=== PATIENT | male | born 1985 | race African-American/Black ===

== ENCOUNTER 2017-12-27 13:49 | Observation (INO) | payer OTHER ==
[~2017-12-27] VITALS: Ht 167.6 cm; Wt 75.3 kg
[~2017-12-27 13:49] MED LIST: CARAFATE 11 GM/10 M1 PO; OMEPRAZOLE40 MG PO; PERCOCET 5-3251 EACH PO; REGLAN 5 MG TAB5 M1 PO; ZOFRAN ODT4 MG PO
[2017-12-27 13:50] VITALS: BP 149/86
[2017-12-27 14:14] LABS: ABSOLUTE NEUTROPHILS 11.8 thou/uL (1.4-8.2); BASOPHILS 0.7 % (0.0-2.0); EOSINOPHILS 0.6 % (0.0-3.0); HEMATOCRIT 43.3 % (42.0-52.0); HEMOGLOBIN 14.8 gm/dL (14.0-18.0); LYMPHOCYTES 16.1 % (24.0-44.0); MCH 30.4 pg (26.0-34.0); MCHC 34.1 g/dL (28.0-37.0); MCV 89.1 fL (80.0-100.0); MONOCYTES 3.7 % (1.0-8.0); PLATELET COUNT 245 thou/uL (150-400); POLYS 78.9 % (36.0-66.0); RBC 4.86 mil/uL (4.50-6.00); RDW 14.7 % (10.5-14.5); WBC 14.9 thou/uL (4.0-11.0)
[2017-12-27 14:21] LABS: ANION GAP 10 mmol/L (7-16); BUN 12 mg/dL (7-18); CALCIUM 10.2 mg/dL (8.5-10.1); CHLORIDE 105 mmol/L (98-107); CO2 28 mmol/L (21-32); CREATININE 1.1 mg/dL (0.7-1.3); GLUCOSE 115 mg/dL (74-106); POTASSIUM 3.8 mmol/L (3.5-5.1); SODIUM 143 mmol/L (136-145)
[2017-12-27 14:26] LABS: ALBUMIN 4.7 g/dL (3.4-5.0); DIRECT BILIRUBIN < 0.1 mg/dL (<0.1-0.3); LIPASE 181 U/L (73-393); SGOT 27 U/L (15-37); SGPT 31 U/L (30-65); TOTAL BILIRUBIN 0.4 mg/dL (<0.1-1.0); TOTAL PROTEIN 8.4 g/dL (6.4-8.2)
[2017-12-27 16:25] LABS: URINE BILIRUBIN NEGATIVE (Negative); URINE BLOOD NEGATIVE (Negative); URINE CLARITY CLEAR; URINE COLOR YELLOW; URINE GLUCOSE-RANDOM* NEGATIVE (Negative); URINE KETONES 2+ (Negative); URINE LEUKOCYTES NEGATIVE (Negative); URINE NITRITE NEGATIVE (Negative); URINE PROTEIN (DIPSTICK) 1+ (Negative)
[2017-12-27 16:30] LABS: BACTERIA None Seen /HPF (None Seen); CRYSTALS None Seen /LPF (None Seen); SQUAMOUS None Seen /LPF (0-3); URINE RBC 0-2 Rare /HPF (0-2); URINE WBC None Seen /HPF (0-5)
[2017-12-27 16:31] LABS: MUCUS >6 Heavy strn/LPF (None Seen)
[2017-12-27 17:37] VITALS: BP 132/79
[2017-12-27 20:37] VITALS: BP 134/72
[2017-12-27 20:39] VITALS: BP 148/82
[2017-12-28 06:01] VITALS: BP 140/69
[2017-12-28 06:28] LABS: ALBUMIN 4.3 g/dL (3.4-5.0); CALCIUM 9.5 mg/dL (8.5-10.1); POTASSIUM 3.7 mmol/L (3.5-5.1); TOTAL BILIRUBIN 0.4 mg/dL (<0.1-1.0)
[2017-12-28 07:15] VITALS: BP 139/83
[2017-12-28 16:57] VITALS: BP 142/75
[2017-12-28 19:20] VITALS: BP 135/90
[2017-12-29 04:00] VITALS: BP 121/67
[2017-12-29 06:50] VITALS: BP 113/55
[2017-12-29 15:25] VITALS: BP 126/73
[2017-12-29 19:31] VITALS: BP 137/71
[2017-12-30 04:40] VITALS: BP 137/95
[2017-12-30 07:45] VITALS: BP 137/94
[2017-12-30] MEDS ORDERED: OXYCODONE20 MG/1 ML PO (09:09)
[2017-12-30] MEDS ORDERED: DURAGESIC1 EAC1 TRANSDERM ×2 (09:09→09:18)
[2017-12-30 10:34] VITALS: BP 137/94
== END 2017-12-30 10:48 | disposition home or self-care (01) ==
LOC: ER 13:49 → 4E 16:43 → EROBS 16:43 → 4E 20:28
PROVIDERS: Emergency Medicine; Hospitalist
DX: K31.84 Gastroparesis (principal); K29.70 Gastritis, unspecified, without bleeding; K25.9 Gastric ulcer, unspecified as acute or chronic, without hemorrhage or perforation; E86.0 Dehydration; F19.10 Other psychoactive substance abuse, uncomplicated; Z90.49 Acquired absence of other specified parts of digestive tract

== ENCOUNTER 2018-01-11 12:34 | Emergency (ER) | payer OTHER ==
[~2018-01-11] VITALS: Ht 175.3 cm; Wt 74.8 kg
[~2018-01-11 12:34] MED LIST changes: +DURAGESIC1 EAC1 TRANSDERM; +OXYCODONE20 MG/1 ML PO
[2018-01-11 13:19] LABS: URINE BILIRUBIN NEGATIVE (Negative); URINE BLOOD NEGATIVE (Negative); URINE CLARITY CLEAR; URINE COLOR YELLOW; URINE GLUCOSE-RANDOM* NEGATIVE (Negative); URINE KETONES NEGATIVE (Negative); URINE LEUKOCYTES-REFLEX NEGATIVE (Negative); URINE NITRITE-REFLEX NEGATIVE (Negative); URINE PROTEIN (DIPSTICK) NEGATIVE (Negative); URINE SPECIFIC GRAVITY <= 1.005 (1.005-1.035); URINE UROBILINOGEN 0.2 E.U./dl (0.2-1.0)
[2018-01-11 14:16] LABS: ABSOLUTE NEUTROPHILS 9.9 thou/uL (1.4-8.2); BASOPHILS 0.4 % (0.0-2.0); EOSINOPHILS 0.5 % (0.0-3.0); HEMATOCRIT 44.2 % (42.0-52.0); HEMOGLOBIN 14.8 gm/dL (14.0-18.0); LYMPHOCYTES 12.8 % (24.0-44.0); MCHC 33.5 g/dL (28.0-37.0); MCV 89.5 fL (80.0-100.0); MONOCYTES 3.7 % (1.0-8.0); PLATELET COUNT 338 thou/uL (150-400); POLYS 82.6 % (36.0-66.0); RBC 4.93 mil/uL (4.50-6.00); RDW 14.5 % (10.5-14.5)
[2018-01-11 14:26] LABS: CALCIUM 10.4 mg/dL (8.5-10.1); CREATININE 1.1 mg/dL (0.7-1.3); POTASSIUM 3.9 mmol/L (3.5-5.1)
[2018-01-11 14:32] LABS: ALBUMIN 4.9 g/dL (3.4-5.0); TOTAL BILIRUBIN 0.5 mg/dL (<0.1-1.0); TOTAL PROTEIN 9.1 g/dL (6.4-8.2)
[2018-01-11] MEDS ORDERED: NORCO 5-325 TA1 EACH PO (14:36)
[2018-01-11 14:45] VITALS: BP 122/76
[2018-01-11] MEDS ORDERED: ONDANSETRON HCL4 M2 PO (14:47)
== END 2018-01-11 12:45 | disposition home or self-care (01) ==
LOC: ER 12:34
PROVIDERS: Emergency Medicine
DX: R10.30 Lower abdominal pain, unspecified (principal); R11.10 Vomiting, unspecified; Z91.041 Radiographic dye allergy status; Z90.49 Acquired absence of other specified parts of digestive tract

== ENCOUNTER 2018-01-28 00:01 | Inpatient (IN) | payer OTHER ==
[~2018-01-28] VITALS: Ht 167.6 cm; Wt 71.2 kg
[~2018-01-28 00:01] MED LIST changes: +NORCO 5-325 TA1 EACH PO; +ONDANSETRON HCL4 M2 PO
[2018-01-28 00:27] VITALS: BP 128/75
[2018-01-28] MEDS ORDERED: TRAMADOL 50 MG50 MG PO ×2 (00:29→01:39)
[2018-01-28 01:18] LABS: URINE BILIRUBIN NEGATIVE (Negative); URINE BLOOD NEGATIVE (Negative); URINE CLARITY CLOUDY; URINE COLOR YELLOW; URINE GLUCOSE-RANDOM* NEGATIVE (Negative); URINE KETONES NEGATIVE (Negative); URINE LEUKOCYTES-REFLEX NEGATIVE (Negative); URINE NITRITE-REFLEX NEGATIVE (Negative); URINE PROTEIN (DIPSTICK) 2+ (Negative)
[2018-01-28 01:19] LABS: CALCIUM 9.7 mg/dL (8.5-10.1); CREATININE 1.1 mg/dL (0.7-1.3)
[2018-01-28 01:25] LABS: ALBUMIN 4.4 g/dL (3.4-5.0); TOTAL BILIRUBIN 0.4 mg/dL (<0.1-1.0); TOTAL PROTEIN 7.9 g/dL (6.4-8.2)
[2018-01-28 01:30] LABS: CASTS None Seen /LPF (None Seen); MUCUS 0-3 Light strn/LPF (None Seen); SQUAMOUS None Seen /LPF (0-3); URINE RBC None Seen /HPF (0-2); URINE WBC-REFLEX None Seen /HPF (0-5)
[2018-01-28 01:31] LABS: AMORPHOUS PHOSPHATES Many /LPF (None Seen); BACTERIA-REFLEX None Seen /HPF (None Seen); CRYSTALS None Seen /LPF (None Seen)
[2018-01-28 01:31] LABS: BASOPHILS 0.4 % (0.0-2.0); EOSINOPHILS 0.5 % (0.0-3.0); HEMATOCRIT 37.4 % (42.0-52.0); HEMOGLOBIN 12.6 gm/dL (14.0-18.0); LYMPHOCYTES 13.4 % (24.0-44.0); MCH 30.5 pg (26.0-34.0); MCHC 33.8 g/dL (28.0-37.0); MCV 90.4 fL (80.0-100.0); MONOCYTES 2.6 % (1.0-8.0); PLATELET COUNT 256 thou/uL (150-400); POLYS 83.1 % (36.0-66.0); RBC 4.14 mil/uL (4.50-6.00); RDW 14.2 % (10.5-14.5); WBC 10.8 thou/uL (4.0-11.0)
[2018-01-28] MEDS ORDERED: ZOFRAN ODT8 MG PO (01:39)
[2018-01-28 02:21] VITALS: BP 119/72
[2018-01-28 07:00] VITALS: BP 121/55
[2018-01-28 15:15] VITALS: BP 121/57
[2018-01-28 19:10] VITALS: BP 137/81
[2018-01-29 06:36] LABS: CALCIUM 8.8 mg/dL (8.5-10.1); CREATININE 0.9 mg/dL (0.7-1.3); POTASSIUM 3.5 mmol/L (3.5-5.1)
[2018-01-29 08:00] VITALS: BP 124/76
[2018-01-29 16:00] VITALS: BP 108/76
[2018-01-29 21:08] VITALS: BP 118/58
[2018-01-30 03:26] VITALS: BP 116/61
[2018-01-30 07:30] VITALS: BP 118/60
[2018-01-30 15:44] VITALS: BP 143/84
[2018-01-30 17:28] VITALS: BP 113/78
[2018-01-30 19:21] VITALS: BP 138/78
[2018-01-31 04:44] VITALS: BP 127/68
[2018-01-31 07:58] VITALS: BP 121/75
[2018-01-31] MEDS ORDERED: PROTONIX40 M1 PO (14:19)
[2018-01-31 14:57] VITALS: BP 121/75
== END 2018-01-31 15:15 | disposition home or self-care (01) | DRG 440 ==
LOC: ER 00:01 → 4W 01:15 → EROBS 01:15 → 4W 02:35
PROVIDERS: Emergency Medicine; Nurse Practitioner Family
DX: K85.90 Acute pancreatitis without necrosis or infection, unspecified (principal); K59.00 Constipation, unspecified; K29.70 Gastritis, unspecified, without bleeding; Z90.49 Acquired absence of other specified parts of digestive tract; Z79.899 Other long term (current) drug therapy; Z91.041 Radiographic dye allergy status
CPT/HCPCS: 10040

== ENCOUNTER 2018-11-14 07:57 | Emergency (ER) | payer BC ==
[~2018-11-14] VITALS: Ht 167.6 cm; Wt 81.7 kg
[~2018-11-14 07:57] MED LIST changes: +PROTONIX40 M1 PO; +TRAMADOL 50 MG50 MG PO; +ZOFRAN ODT8 MG PO
[2018-11-14 07:58] VITALS: BP 143/83
[2018-11-14] MEDS ORDERED: IBUPROFEN 600600 M1 PO (08:40)
== END 2018-11-14 08:48 | disposition home or self-care (01) ==
LOC: ER 07:57
DX: S63.8X1A Sprain of other part of right wrist and hand, initial encounter (principal); S66.811A Strain of other specified muscles, fascia and tendons at wrist and hand level, right hand, initial encounter; K31.84 Gastroparesis; Z91.041 Radiographic dye allergy status; Z90.49 Acquired absence of other specified parts of digestive tract; W00.0XXA Fall on same level due to ice and snow, initial encounter; Y92.89 Other specified places as the place of occurrence of the external cause; Y93.89 Activity, other specified; Y99.8 Other external cause status

== ENCOUNTER 2019-01-28 08:59 | Emergency (ER) | payer BC ==
[~2019-01-28] VITALS: Ht 170.2 cm; Wt 81.7 kg
[~2019-01-28 08:59] MED LIST changes: +IBUPROFEN 600600 M1 PO
[2019-01-28 09:00] VITALS: BP 143/93
== END 2019-01-28 09:33 | disposition home or self-care (01) ==
LOC: ER 08:59
DX: S46.211A Strain of muscle, fascia and tendon of other parts of biceps, right arm, initial encounter (principal); K31.84 Gastroparesis; Z87.19 Personal history of other diseases of the digestive system; Z91.041 Radiographic dye allergy status; X58.XXXA Exposure to other specified factors, initial encounter; Y93.89 Activity, other specified; Y92.89 Other specified places as the place of occurrence of the external cause; Y99.8 Other external cause status

== ENCOUNTER 2019-02-04 09:57 | Emergency (ER) | payer BC ==
[~2019-02-04] VITALS: Ht 167.6 cm; Wt 81.7 kg
[2019-02-04 10:33] LABS: ABSOLUTE NEUTROPHILS 7.7 thou/uL (1.4-8.2); BASOPHILS 0.7 % (0.0-2.0); HEMATOCRIT 46.2 % (42.0-52.0); HEMOGLOBIN 15.8 gm/dL (14.0-18.0); LYMPHOCYTES 29.1 % (24.0-44.0); MCHC 34.2 g/dL (28.0-37.0); MCV 87.6 fL (80.0-100.0); MONOCYTES 7.5 % (1.0-8.0); PLATELET COUNT 279 thou/uL (150-400); POLYS 60.7 % (36.0-66.0); RBC 5.28 mil/uL (4.50-6.00); RDW 14.2 % (10.5-14.5); WBC 12.8 thou/uL (4.0-11.0)
[2019-02-04 10:39] LABS: CALCIUM 10.1 mg/dL (8.5-10.1); CREATININE 1.1 mg/dL (0.7-1.3)
[2019-02-04 10:45] LABS: ALBUMIN 4.8 g/dL (3.4-5.0); TOTAL BILIRUBIN 0.5 mg/dL (<0.1-1.0)
[2019-02-04] MEDS ORDERED: PHENERGAN 25 MG25 M1 PO (11:41)
[2019-02-04] MEDS ORDERED: NORCO 5-325 TA1 EACH PO (11:41)
[2019-02-04 12:00] VITALS: BP 128/76
== END 2019-02-04 17:36 | disposition home or self-care (01) ==
LOC: ER 09:57
PROVIDERS: Nurse Practitioner Family
DX: R11.2 Nausea with vomiting, unspecified (principal); R10.84 Generalized abdominal pain; K31.84 Gastroparesis; F17.210 Nicotine dependence, cigarettes, uncomplicated; Z91.041 Radiographic dye allergy status; Z90.49 Acquired absence of other specified parts of digestive tract

== ENCOUNTER 2019-02-04 19:55 | Inpatient (IN) | payer BC ==
[~2019-02-04] VITALS: Ht 167.6 cm; Wt 85.7 kg
[~2019-02-04 19:55] MED LIST changes: +PHENERGAN 25 MG25 M1 PO
[2019-02-04 19:57] VITALS: BP 143/88
--- NOTE | 2019-02-04 20:04 | NUR ---
TOOK PT TO ROOM 12 AND GAVE A WARM BLANKET. PT PLACED ON GUITAR MAKER. NOTIFIED PRIMARY NURSE THAT PT WAS IN ROOM.
[2019-02-04 20:31] LABS: ABSOLUTE NEUTROPHILS 9.3 thou/uL (1.4-8.2); BASOPHILS 0.4 % (0.0-2.0); EOSINOPHILS 0.1 % (0.0-3.0); HEMATOCRIT 42.8 % (42.0-52.0); HEMOGLOBIN 14.7 gm/dL (14.0-18.0); LYMPHOCYTES 15.2 % (24.0-44.0); MCH 30.1 pg (26.0-34.0); MCHC 34.4 g/dL (28.0-37.0); MCV 87.3 fL (80.0-100.0); MONOCYTES 3.1 % (1.0-8.0); PLATELET COUNT 259 thou/uL (150-400); POLYS 81.2 % (36.0-66.0); RDW 14.3 % (10.5-14.5); WBC 12.8 thou/uL (4.0-11.0)
[2019-02-04 20:39] LABS: CALCIUM 10.4 mg/dL (8.5-10.1); CREATININE 1.3 mg/dL (0.7-1.3); POTASSIUM 3.8 mmol/L (3.5-5.1)
[2019-02-04 20:44] LABS: ALBUMIN 4.7 g/dL (3.4-5.0); TOTAL BILIRUBIN 0.4 mg/dL (<0.1-1.0); TOTAL PROTEIN 8.7 g/dL (6.4-8.2)
[2019-02-04 20:56] VITALS: BP 143/88
[2019-02-04 21:08] VITALS: BP 139/76
--- NOTE | 2019-02-04 21:18 | EKG ---
[address] [address] ELECTROCARDIOGRAM REPORT Name: ROLANDRAHUL T Room #: 417-I ADM IN M.R.#: [id number] ������������������ Admission: 02/04/19 ������������������ Attend Phys: Sandro Jung MD Discharge: ������������������ Date of : 87 Report #: [id number] ����������������������������������������������������������������� [id number] THIS REPORT FOR: //name// [facility] ED Test Date: 2019-02-04 Test Time: 20:11:55 Pat Name: RAHUL WATKINS Department: Room: [facility] Gender: M Solution Engineer: JAYDE : 1985 Requested By: Carol Loo Order Number: [id number] MD: Albino Gomez Measurements Intervals Wilson Rate: 81 P: 26 NE: 142 QRS: 35 QRSD: 87 T: -1 QT: 387 QTc: 450 Interpretive Statements Sinus rhythm No previous ECG available for comparison Electronically Signed On 02-04-2019 21:18:27 CDT by Albino Gomez [email or web address] ��������������������������������������������� <ELECTRONICALLY SIGNED> ���������������������������������������� By: Albino Gomez MD ��������������������������������������������� 02/04/19 2118 10 10 Albino Gomez MD /COY
[2019-02-04 21:21] VITALS: BP 143/72
[2019-02-04 21:56] LABS: URINE BILIRUBIN NEGATIVE (Negative); URINE BLOOD NEGATIVE (Negative); URINE CLARITY CLEAR; URINE COLOR YELLOW; URINE GLUCOSE-RANDOM* NEGATIVE (Negative); URINE KETONES 3+ (Negative); URINE LEUKOCYTES-REFLEX NEGATIVE (Negative); URINE NITRITE-REFLEX NEGATIVE (Negative); URINE PROTEIN (DIPSTICK) 1+ (Negative)
[2019-02-04 22:17] LABS: BACTERIA-REFLEX 1-9 Few /HPF (None Seen); CASTS None Seen /LPF (None Seen); CRYSTALS None Seen /LPF (None Seen); MUCUS 0-3 Light strn/LPF (None Seen); SQUAMOUS 0-3 Few /LPF (0-3); URINE RBC 0-2 Rare /HPF (0-2); URINE WBC-REFLEX 0-5 Rare /HPF (0-5)
[2019-02-04 22:56] LABS: AMP/METHAMP Negative (Negative); BARBITURATES Negative (Negative); BENZODIAZEPINES Negative (Negative); COCAINE Negative (Negative); METHADONE Negative (Negative); OPIATES Negative (Negative); PCP Negative (Negative)
--- NOTE | 2019-02-05 01:08 | NUR ---
PT ARRIVE TO UNIT APPROX 2114 IN STABLE CONDITION, ADMISSION AND ASSESSMENT COMPLETED. PT A&Ox4, FLAT AFFECT, GIVING TERSE ANSWERS TO QUESTIONS, ASKING FOR PAIN MEDS AND STATING "NOTHING THEY GAVE ME IN ER HELPED." REPORTS SMOKING CIGARETTES DAILY AND USING MARIJUANA, BUT DOESN'T REPORT HOW OFTEN; DENIES ALCOHOL USE. REPORTS LOWER ABD PAIN THAT IS BOTH CRAMPING AND SHARP, HYPOACTIVE BOWEL SOUNDS; DRANK ONE CAN OF LEMON-MARY'S IGLOO SODA AND VOMITED IT BACK UP ABOUT 30 MINUTES LATER. DENIES SOB. SKIN INTACT. ALTERNATELY CHILLING AND HOT, LOW-GRADE TEMP NOTED. HAVE GIVEN IV TORADOL, ATIVAN, AND ANTI-EMETICS; IV FLUIDS INFUSING. NO OTHER CONCERNS, WILL CONTINUE TO MONITOR.
[2019-02-05 04:32] VITALS: BP 133/80
[2019-02-05 07:59] VITALS: BP 126/60
--- NOTE | 2019-02-05 15:33 | NUR ---
ASSESSMENT-PT LIVES IN AN APT WITH HIS S.O. PT WALKS ON HIS OWN AND DOES HIS OWN ADLS. PT DRIVE AND WORKS. PT'S PCP IS DR ADRIEL HA. PT VOICES NO CONCERNS RELATED TO DC. PT DOES ADMIT TO SMOKING MARIJUANA BUT DENIES NEED FOR ANY RESOURCES AT THIS TIME. PLAN WILL BE TO RETURN HOME ONCE MEDICALLY STABLE. NO DC NEEDS ANTICIPATED.
[2019-02-05 16:01] VITALS: BP 143/62
--- NOTE | 2019-02-05 16:54 | NUR ---
ASSUMED CARE OF PT AT 0700. ASSESSMENT COMPLETED. A&O,X4. C/O ABD PAIN AND N/V, PAIN GIVEN ORDERED. GI CONSULT TODAY, ADVANCED DIET TO REGULAR, PT NOT TOLERATING PO INTAKE WELL. EMESIS X3 TODAY. ROOM AIR. NO SOA OR CHEST PAIN. LBM TODAY. UP AD HOLDEN. SKIN INTACT. PT IN STABLE CONDITION. WILL CONTINUE TO MONITOR.
[2019-02-05 19:49] VITALS: BP 143/72
[2019-02-06 01:06] LABS: HAV IgM AB (ANTI-HAV IgM) Negative (Negative); HEPATITIS B SURFACE AG Negative (Negative); HEPATITIS C VIRUS AB <0.1 (0.0-0.9)
--- NOTE | 2019-02-06 05:13 | NUR ---
ASSUMED CARE AT 1900, ASSESSMENT COMPLETED. PT HAS BEEN RATING LOWER ABD PAIN 8 OF 10; STILL C/O NAUSEA, ONE EPISODE OF EMESIS, LESS THAN 50 ML LIGHT GREEN OUPUT. ALTERNATING ANTI-EMETICS AND PAIN MEDS. DENIES SOB. TOLERATING LIQUIDS AND A FEW BITES OF CRACKERS, HAS BEEN HESITANT TO TAKE MORE THAN THAT OR TRY PO MEDICATIONS. IV FLUIDS INFUSING OVERNIGHT. NO OTHER CONCERNS, WILL CONTINUE TO MONITOR.
[2019-02-06 05:25] VITALS: BP 144/72
[2019-02-06 05:32] LABS: HEMATOCRIT 39.1 % (42.0-52.0); HEMOGLOBIN 13.1 gm/dL (14.0-18.0); MCH 29.7 pg (26.0-34.0); MCHC 33.5 g/dL (28.0-37.0); MCV 88.7 fL (80.0-100.0); RBC 4.41 mil/uL (4.50-6.00); RDW 13.9 % (10.5-14.5)
[2019-02-06 05:45] LABS: ALBUMIN 3.8 g/dL (3.4-5.0); CREATININE 0.9 mg/dL (0.7-1.3); POTASSIUM 3.5 mmol/L (3.5-5.1); TOTAL BILIRUBIN 0.5 mg/dL (<0.1-1.0)
[2019-02-06 05:46] LABS: CALCIUM 8.4 mg/dL (8.5-10.1)
[2019-02-06 07:10] VITALS: BP 122/83
--- NOTE | 2019-02-06 09:33 | NUR ---
ASSUMED CARE AT 0700, SHIFT ASSESSMENT DONE, A&O*4, MEDS GIVEN, VSS. REPORPTED PAIN TO ABDOMEN AND NAUSEA, PRN PAIN MED GIVEN. NOT TOLERATING SOLID DIET, TOLERATING LIQUID WELL. WILL CONTINUE TO ASSESS AND ASSIST WITH ADLs NEEDED.
[2019-02-06] MEDS ORDERED: BENTYL 10 MG CA10 M1 PO (13:23)
[2019-02-06 14:21] VITALS: BP 122/83
== END 2019-02-06 15:08 | disposition home or self-care (01) | DRG 392 ==
LOC: ER 19:55 → 4E 20:24 → EROBS 20:24 → 4E 21:05
PROVIDERS: Nurse Practitioner Acute Care; Physician Assistant; ADMIT Internal Medicine
DX: K52.9 Noninfective gastroenteritis and colitis, unspecified (principal); F12.10 Cannabis abuse, uncomplicated; R74.0 Nonspecific elevation of levels of transaminase and lactic acid dehydrogenase [LDH]; F17.210 Nicotine dependence, cigarettes, uncomplicated; Z87.11 Personal history of peptic ulcer disease; Z91.041 Radiographic dye allergy status; Z90.49 Acquired absence of other specified parts of digestive tract; Z83.3 Family history of diabetes mellitus; Z82.3 Family history of stroke
CPT/HCPCS: 10084